=== PATIENT | male | born 1965 | race Caucasian/White ===

== ENCOUNTER 2020-03-05 09:49 | Outpatient (CLI) | payer OTHER ==
[~2020-03-05 09:49] MED LIST: BENA10TA25 PO
== END 2020-03-05 20:29 | disposition home or self-care (01) ==
LOC: MRD 09:49
PROVIDERS: ATTEND Hospitalist
DX: G31.9 Degenerative disease of nervous system, unspecified (principal); M62.81 Muscle weakness (generalized); R56.9 Unspecified convulsions; R29.3 Abnormal posture; I10 Essential (primary) hypertension; E11.9 Type 2 diabetes mellitus without complications; N31.9 Neuromuscular dysfunction of bladder, unspecified; Z43.1 Encounter for attention to gastrostomy; Z43.0 Encounter for attention to tracheostomy; Z48.811 Encounter for surgical aftercare following surgery on the nervous system
CPT/HCPCS: 70450